=== PATIENT | male | born 1960 | race Caucasian/White ===

== ENCOUNTER → 2024-03-08 08:45 | Outpatient (BNVA) | payer OTHER, SELFPAY | PROVIDERS: PCP Family Medicine; Visit Provider Family Medicine | DX: E03.9 Hypothyroidism, unspecified (principal); Z86.39 Personal history of other endocrine, nutritional and metabolic disease; J44.9 Chronic obstructive pulmonary disease, unspecified | CPT/HCPCS: 80053; 80061; 84439; 84443; 85025; 86376 ==

== ENCOUNTER 2024-03-11 12:01 | Outpatient (CLI) | payer OTHER, SELFPAY ==
--- NOTE | 2024-03-11 12:30 | CTR_ITS ---
PROCEDURE INFORMATION: Exam: CT Chest Without Contrast; Diagnostic Exam date and time: 03/11/2024 12:49 PM Age: 63 years old Clinical indication: Other: Weight loss; Additional info: Abdominal mass on stomach. 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 Radiation optimization: All CT scans at this facility use at least one of these dose optimization techniques: automated exposure control; mA and/or kV adjustment per patient size (includes targeted exams where dose is matched to clinical indication); or iterative reconstruction. COMPARISON: No relevant prior studies available. RADIATION DOSE METRICS: Total DLP (mGy-cm): 366.14 FINDINGS: Thyroid: Partially imaged thyroid is normal in appearance. Lungs: Severe centrilobular emphysematous changes of the lungs. Masslike consolidation extending into the left infrahilar lung. Pleural spaces: No significant pleural effusion. No pneumothorax. Heart: Heart is normal in size. No pericardial effusion. Coronary arteries: Minimal coronary artery calcification. Mediastinal space: Soft tissue mass, located in the inferior posterior mediastinum, likely arising from the lower esophagus, measuring up to 7.4 cm. Lymph nodes: No distinct pathologically enlarged lymphadenopathy in the chest proper. Calcified right hilar lymph nodes. Vasculature: Moderate scattered calcific atheromatous disease of the thoracic aorta. Bones/joints: No acute osseous findings. Soft tissues: Visualized superficial soft tissues are within normal limits. Other findings: Consolidative scarring about the right hilum. PROCEDURE INFORMATION: Exam: CT Abdomen And Pelvis Without Contrast Exam date and time: 03/11/2024 12:49 PM Age: 63 years old Clinical indication: Other: Weight loss; Additional info: Abdominal mass on stomach. 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 Radiation optimization: All CT scans at this facility use at least one of these dose optimization techniques: automated exposure control; mA and/or kV adjustment per patient size (includes targeted exams where dose is matched to clinical indication); or iterative reconstruction. COMPARISON: No relevant prior studies available. RADIATION DOSE METRICS: Total DLP (mGy-cm): 366.14 FINDINGS: Liver: The liver is unremarkable. Gallbladder and biliary ducts: Multiple tiny dependent gallstones within the gallbladder. No significant gallbladder wall thickening or pericholecystic fluid. No significant biliary ductal dilation. Pancreas: The pancreas is unremarkable. Spleen: The spleen is unremarkable. Adrenal glands: The adrenal glands are unremarkable. Kidneys and ureters: 3.2 cm cyst involving the left kidney lower pole. Indeterminate exophytic lesion involving the left kidney upper pole, measuring up to 2.7 cm, with coarse internal calcifications. Right kidney is normal in appearance. No hydronephrosis or hydroureter. Stomach and bowel: Nonobstructive bowel-gas pattern. Appendix: No evidence of acute appendicitis. Intraperitoneal space: No significant free fluid in the abdomen or pelvis. Vasculature: Moderate scattered calcific atheromatous disease of the abdominal aorta and its major branches. No abdominal aortic aneurysm. Lymph nodes: Multiple prominent lymph nodes in the epigastric abdomen, measuring up to 1.3 cm on short axis. Urinary bladder: Urinary bladder is within normal limits. Reproductive: Visualized reproductive structures are within normal limits. 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 No distinct acute osseous findings. Soft tissues: Visualized superficial soft tissues are within normal limits. CT/[place] [id number] IMPRESSION: 1. Soft tissue mass, located in the inferior posterior mediastinum, measuring up to 7.4 cm. This may represent a mass arising from the lower esophagus. Alternatively, this may represent a mass arising from the stomach extending into the lower mediastinum via a [id number] hiatal hernia, with resultant mass effect upon the esophagus. Less likely, this may represent a lung primary. This mass may be amenable to endoscopic approach biopsy. PET-CT may be useful for determining extent of disease and for identifying potential biopsy locations. 2. Consolidative scarring about the right hilum. This area has the appearance of chronic radiation/post treatment changes. Overlying infectious infiltrate or metastatic disease could have a similar appearance. 3. Masslike consolidation extending into the left infrahilar lung. This may represent direct invasion of the lower esophageal mass into the lung versus local metastatic disease. 4. Severe centrilobular emphysematous changes of the lungs. IMPRESSION: 1. Multiple prominent lymph nodes in the epigastric abdomen, measuring up to 1.3 cm on short axis. This likely represents local branden metastatic disease secondary to lower mediastinal mass presumed to arise from the esophagus or stomach. 2. Indeterminate exophytic lesion involving the left kidney upper pole, measuring up to 2.7 cm, with coarse internal calcifications. Recommend further evaluation. Dedicated renal ultrasound could be used to determine vascularity of this lesion if PET-CT is not performed. 3. Cholelithiasis without CT evidence of acute cholecystitis. COMMENTS: Consistent with the [employer]'s Incidental Findings Committee white paper (J Am Laura Radiol 2018): Any incidental renal lesion less than 1 cm or classified as too small to characterize, or any incidental cystic renal lesion characterized as simple-appearing, is likely benign. No follow-up imaging is recommended for these lesions per consensus recommendations based on imaging criteria.
[2024-03-11] MEDS: iohexol 350 mg/mL 500 mL Btl (per mL) PO (12:50)
== END 2024-03-11 12:02 | disposition home or self-care (01) ==
PROVIDERS: PCP Family Medicine; Visit Provider Family Medicine
DX: R19.00 Intra-abdominal and pelvic swelling, mass and lump, unspecified site (principal); J43.2 Centrilobular emphysema; R91.8 Other nonspecific abnormal finding of lung field; R59.0 Localized enlarged lymph nodes; D30.02 Benign neoplasm of left kidney; K80.20 Calculus of gallbladder without cholecystitis without obstruction; M43.06 Spondylolysis, lumbar region; N28.1 Cyst of kidney, acquired
CPT/HCPCS: 71250; 74176

== ENCOUNTER 2024-03-15 11:40 | Outpatient (CLI) | payer OTHER, SELFPAY ==
--- NOTE | 2024-03-15 11:30 | PETR_ITS ---
PROCEDURE INFORMATION: Exam: PET/CT Skull Base to Mid-thigh Exam date and time: 03/15/2024 12:35 PM Age: 63 years old Clinical indication: Abnormal findings; Soft tissue mass, located in the inferior posterior mediastinum, measuring up to 7.4 cm. ; Additional info: Abdominal mass with CA symptom, 7.5cm LABS AND CLINICAL REPORTS: Glucose: 93 mg/dl Treatment strategy for malignancy (PET staging): Initial Staging (PI) TECHNIQUE: Imaging protocol: Following at least four-hour fasting and following the injection of radiopharmaceutical, low dose CT images were obtained. Then, PET images were obtained. Attenuation corrected images were constructed using the CT scan. Fused images of PET and CT were reviewed. The standardized uptake values (SUV) reported below are maximum values within a region of interest, expressed in gm/ml. Exam includes orbital meatal line to mid-thigh. SUV normalization method: BodyWeight Radiopharmaceutical: 10.87 mCi F-18 FDG (Fluorodeoxyglucose), IV. Time of imaging post radiopharmaceutical administration: 45 minutes Injection site: left ac COMPARISON: [place] [id number] 03/11/2024 12:49 PM FINDINGS: Brain: Visualized brain has normal physiologic uptake. Pharynx: No abnormal uptake. Larynx: No abnormal uptake. Lungs, pleura and trachea: Diffuse emphysematous change. Irregular consolidative opacity at the right lower lobe measures approximately 2.9 x 2.4 cm on axial image 225 and shows SUV max 5.6. Thickened triangular bandlike left lower lobe opacity extends along the major fissure with low-level FDG uptake showing SUV max 3.4 and more central masslike opacity measuring approximately 2.4 x 2.0 cm on axial image 204 with apparent bronchial occlusion on axial images 205-207, SUV max 6.3. Small left pleural effusion. Heart: Normal physiologic uptake. Mediastinal space: Redemonstrated large mass at the inferior aspect posterior to the heart measuring 8.4 x 8.3 cm on axial image 195 shows SUV max 8.5 with few areas of photopenia indicating necrosis. Again, there is mass effect on the esophageal lumen which is displaced to the right as well as similar dilatation of the upstream esophagus with fluid contents. Liver: No abnormal uptake. Gallbladder and biliary ducts: No abnormal uptake. Pancreas: No abnormal uptake. Spleen: No abnormal uptake. Adrenal glands: 1.3 cm left adrenal nodule shows low-level FDG uptake with SUV max 3.1. Unremarkable right adrenal gland. Kidneys and ureters: Normal physiologic uptake. Photopenic partially calcified 2.8 cm exophytic left upper renal lesion with fluid density. Photopenic fluid density simple left lower renal cyst. Stomach and bowel: Colonic diverticulosis without findings of diverticulitis. Moderate to large rectal burden. Vasculature: No abnormal uptake. Moderate systemic atherosclerotic calcification without aortic aneurysm. Lymph nodes: Mediastinal and bilateral hilar lymphadenopathy with index precarinal node measuring 1.2 cm in the short axis showing SUV max 5.2, nonenlarged subcarinal node showing SUV max 4.6, right hilar node measuring approximately 1.3 cm showing SUV max 5.7 on axial image 211, and node posterior to the left main bronchus measuring 1 cm in the short axis on axial image 223 showing SUV max 3.5. Just anterior to the distal mediastinal mass is a node measuring 1.1 cm in the short axis on axial image 185 showing SUV max 5.4. Enlarged perigastric lymph node measures 1.4 cm in the short axis on axial image 178 and shows SUV max 6.6. Mildly prominent bilateral axillary lymph nodes with preserved reniform morphology and FDG uptake measuring 6 mm in the short axis on the right on axial image 251 with SUV max 4.7 and 7 mm in the short axis on the left on axial image 246 with SUV max 4.0. Focal FDG uptake at posterior right submandibular region with underlying soft tissue density shows SUV max 4.4 on axial image 291. Skeleton: No abnormal uptake in the visualized axial and appendicular skeleton. Soft tissues: FDG uptake at bilateral neck, upper chest and costovertebral regions with underlying fat density in keeping with brown fat. Linear FDG uptake along right teres minor muscle without underlying CT abnormality is benign activation or inflammatory/strain. Focal low-level FDG uptake just posterior to left humeral head is likely tendinopathy. Photopenic thick rimmed centrally hypodense 3.0 x 1.0 cm structure at the subcutaneous anterior right thigh on axial image 35. METRICS: Mediastinal blood pool: SUV mean 2.0 Liver uptake: SUV mean 2.3 PET/PET skull to thigh INIT [id number] IMPRESSION: 1. Large partially necrotic mediastinal mass may represent malignant lymphadenopathy or possibly esophageal mass. Resultant partially obstructive mass effect on esophageal lumen. 2. Mediastinal, bilateral hilar, and perigastric lymphadenopathy suspicious for malignancy. 3. Lower level FDG uptake at mildly prominent bilateral axillary lymph nodes is nonspecific, possibly reactive given preserved reniform morphology. 4. Focal FDG uptake at posterior right submandibular region could represent abnormal lymph node but is uncertain and warrants further evaluation with contrast-enhanced neck CT. 5. Irregular FDG avid right lower lobe consolidative opacity could be infectious or malignant. 6. Mildly FDG avid left lower lobe opacity may represent postobstructive atelectasis or pneumonia with apparent obstructing lesion centrally measuring approximately 2.4 cm. 7. Indeterminate 1.3 cm left adrenal nodule. Recommend nonemergent adrenal CT or MRI. 8. Indeterminate partially calcified photopenic 2.8 cm exophytic left upper renal mass. Recommend nonemergent renal MRI or CT without and with contrast. 9. Small left pleural effusion. 10. Nonspecific photopenic 3 x 1 cm structure at the subcutaneous anterior right thigh may be benign posttraumatic or postprocedural. Correlate with clinical findings.
== END 2024-03-15 11:41 | disposition home or self-care (01) ==
PROVIDERS: PCP Family Medicine; Visit Provider Family Medicine
DX: R19.00 Intra-abdominal and pelvic swelling, mass and lump, unspecified site (principal); J43.9 Emphysema, unspecified; R91.8 Other nonspecific abnormal finding of lung field; D35.02 Benign neoplasm of left adrenal gland; I70.0 Atherosclerosis of aorta; R59.0 Localized enlarged lymph nodes; J90 Pleural effusion, not elsewhere classified
CPT/HCPCS: 78815; A9552

== ENCOUNTER 2024-03-18 22:05 | Emergency (ER) | payer MEDICARE, MEDICAID, SELFPAY ==
[2024-03-18] VITALS (13 sets, daily range): BP systolic 85–116; BP diastolic 47–74; PULSE 122–139; RESP 18–27; TEMP 36.7; O2SAT 92–98; BMI 15.0
--- NOTE | 2024-03-18 22:08 | XRR_ITS ---
PROCEDURE INFORMATION: Exam: XR Chest Exam date and time: 03/18/2024 10:40 PM Age: 63 years old Clinical indication: Shortness of breath; Additional info: Post code TECHNIQUE: Imaging protocol: Radiologic exam of the chest. Views: 1 view. COMPARISON: [place] [id number] 03/11/2024 12:49 PM FINDINGS: Tubes, catheters and devices: There is an endotracheal tube with the tip 5.3 cm above the shawn. There is an enteric tube with the tip just below the GE junction with the proximal port in the lower esophagus. External defibrillator patches overlie the chest. Lungs: Interval development of patchy left lower lobe atelectasis versus pneumonia, possibly aspiration pneumonia. Stable moderate hyperinflation of the lungs. Pleural spaces: No pleural effusion. No pneumothorax. Heart/Mediastinum: The cardiac silhouette and mediastinal contours are unremarkable. Stable retrocardiac density, this corresponds to the large mediastinal mass noted on the prior CT scan. Vasculature: Stable vascular calcifications in the aorta. Bones/joints: Unremarkable for age. Gastrointestinal tract: Mild distension of the visualized stomach. XR/XR chest 1V portable [id number] IMPRESSION: 1. Interval development of patchy left lower lobe atelectasis versus pneumonia, possibly aspiration pneumonia. Recommend followup chest imaging to insure resolution of these findings. 2. Mild distension of the visualized stomach. 3. Stable retrocardiac density, this corresponds to the large mediastinal mass noted on the prior CT scan. 4. There is an enteric tube with the tip just below the GE junction with the proximal port in the lower esophagus. Recommend advancing the tube 6-7 cm. 5. There is an endotracheal tube with the tip 5.3 cm above the shawn. 6. Incidental/nonacute findings are listed in the report. COMMENTS: Urgent results were discussed with HRENANDEZ Christina on 03/18/2024 at 11:30 PM [employer].
--- NOTE | 2024-03-18 22:13 | PC.NURSE ---
pt is sedated at this time and not able to answer the SI questions
--- NOTE | 2024-03-18 22:17 | ECG_ITS ---
[employer] Test Date: 2024-03-18 Pat Name: Wes Carrion Department: Room: Gender: Male T[employer] Bl[employer]: : [id number] Requested By: Emily Giron Order Number: [id number] Rosa MD: Traci Leary M.D. Measurements Intervals [place] Rate: 126 P: 74 IL: 149 QRS: 71 QRSD: 93 T: 124 QT: 387 QTc: 562 Interpretive Statements SINUS TACHYCARDIA INDETERMINATE AXIS LOW QRS VOLTAGE IN EXTREMITY LEADS [QRS DEFLECTION < 0.5 mV IN LIMB LEADS] INCOMPLETE RIGHT BUNDLE BRANCH BLOCK [90+ ms QRS DURATION, TERMINAL R IN V1/V2, 40+ ms S IN I/aVL/V4/V5/V6] POSSIBLE INFERIOR MYOCARDIAL INFARCTION , OF INDETERMINATE AGE [30 ms Q WAVE IN II/aVF] No previous ECG available for comparison Electronically Signed On 03-20-2024 19:15:19 [employer]PRENTICE by Traci Leary M.D. [email or web address]
[2024-03-18] MEDS: midazolam hcl 100 MG/100 ML BAG IV (22:27)
[2024-03-18] MEDS: fentaNYL 50 mcg/mL INJ 2mL IVP (22:35)
[2024-03-18 22:44] LABS: Basophils # 0.1 10^3/uL (0.0-0.1); Basophils % 0.4 %; Eosinophils # 0.1 10^3/uL (0.0-0.8); Eosinophils % 0.7 %; Hematocrit 27.4 % (37-53); Lymphocytes # 1.2 10^3/uL (0.8-4.8); Lymphocytes % 8.2 %; Mean Corpuscular Hemoglobin 27.7 pg (27-33); Mean Corpuscular Volume 89.3 fl (82-101); Mean Platelet Volume 10.1 fL (7.4-10.4); Monocytes # 0.6 10^3/uL (0.2-0.9); Monocytes % 3.9 %; Neutrophils # 12.31 10^3/uL (1.8-7.7); Neutrophils % 82.4 %; Nucleated Red Blood Cells % 0 %; Platelet Count 549 10^3/cmm (157-399); Red Blood Count 3.07 10^6/uL (3.85-5.65); Red Cell Distribution Width 14.5 % (12.1-15.1); White Blood Count 14.95 10^3/uL (3.29-11.43)
--- NOTE | 2024-03-18 22:45 | PC.NURSE ---
IO placed in the right femur just above the knee by [facility] ems. Removed at this time
[2024-03-18 22:46] LABS: Bilirubin Urine Negative (Negative); Blood Urine Negative (Negative); Glucose Urine UA Negative (Normal); Ketones Urine Negative (Negative); Leukocyte Esterase Urine Negative (Negative); Nitrate Urine Negative (Negative); Protein Urine 2+ (Negative); Specific Gravity, Urine 1.017 (1.005-1.030); Urine Appearance Clear (CLEAR); Urine Color Yellow (Yellow); pH Urine 5.5 (5-7)
[2024-03-18 22:46] LABS: Troponin(5th) Baseline 66 ng/L (0-15)
[2024-03-18 22:47] LABS: Lactic Sepsis W/Reflex 5.5 mmol/L (0.5-2.2)
--- NOTE | 2024-03-18 22:47 | W.ED.CPR ---
HPI - CPR General: Chief Complaint: Cardiac Arrest/CPR Stated Complaint: CARDIAC ARREST Time Seen by Provider: 03/18/24 22:07 History of Present Illness: 63-year-old man with history of COPD and report of stomach cancer who presents the emergency room after cardiac arrest at home and CPR. says she was in bed with him as they usually are and when she looked over after about 15 or 20 minutes she noticed his eyes were open but he was breathing agonal he. She says her son did CPR for a few minutes before first responders arrived. EMS reports that when they arrived he initially had a very thready pulse which they lost and was breathing agonal he. CPR was resumed. He was intubated. He was given 1 round of epi and they regained a pulse. On arrival here he is intubated, but is awake and alert and will blink his eyes in response to questions. says that Related Data Home Medications Medication Instructions Recorded Confirmed atorvastatin 20 mg tablet 20 mg PO DAILY 03/08/24 03/08/24 multivitamin 1 tab PO DAILY 03/08/24 03/08/24 Previous Rx's Medication Instructions Recorded albuterol sulfate 90 mcg/actuation 1 inh inhalation QID PRN shortness 03/08/24 aerosol inhaler of breath or wheezing #8.5 grams fluticasone fur. 200 mcg-umeclid 1 inh inhalation DAILY #60 ea 03/08/24 62.5 mcg-vilant 25 mcg inhalat.powder (Trelegy Ellipta) guaifenesin 1,200 mg tablet, 1,200 mg PO BID #14 tabs 03/08/24 extended release 12 hr (Mucinex) pantoprazole 40 mg tablet,delayed 40 mg PO DAILY #60 tabs 03/08/24 release (Protonix) levothyroxine 25 mcg capsule 25 mcg PO DAILY #60 caps 03/11/24 Allergies Allergy/AdvReac Type Severity Reaction Status Date / Time Penicillins Allergy Mild rash Verified 03/18/24 22:12 Review of Systems General: Reports: ROS unobtainable due to endotracheal tube [facility] ED PFSH: Medical History (Updated 03/19/24 @ 01:24 by Emily Bass MD) Hiatal hernia Pulmonary fibrosis Tobacco use disorder Low body mass index (BMI) COPD (chronic obstructive pulmonary disease) Hypothyroidism Mass in the abdomen Surgical History (Updated 03/08/24 @ 08:15 by Kahlil Watson MD) History of melanoma excision Family History Father Cancer Mother Brain cancer Diabetes Hypothyroidism Social History (Updated 03/08/24 @ 08:47 by Kahlil aWtson MD) Smoking and tobacco/nicotine status: current every day tobacco/nicotine user cigarettes [ Other cigarette details: 1/2 PPD, >100PY] Alcohol intake: former Former alcohol use details: beer Substance/Drug Use: never Physical Exam Narrative: EXAM NARRATIVE: General: Patient is actually awake and responds to questions by blinking, intubated. Patient is quite cachectic Skin: Warm, dry Head: Normocephalic, atraumatic. Neck: Supple, trachea midline. Eye: Pupils equal and reactive. Extraocular movements are intact Ears, nose, mouth and throat: ETT in place. Cardiovascular: Regular rate and rhythm, Normal peripheral perfusion. Respiratory: coarse, mechanically ventilated, breath sounds are equal, Symmetrical chest wall expansion. Gastrointestinal: Soft, Non distended, Normal bowel sounds. Musculoskeletal: no deformity. Neurological: Patient moves all extremities. He responds to questions appropriately with pointing. We are increasing sedation Psychiatric: unable to assess Course Vital Signs: Vital signs: Vital Signs Temperature 98.1 F 03/18/24 22:08 Pulse Rate 104 H 03/19/24 01:04 Respiratory Rate 20 H 03/19/24 01:10 Blood Pressure 66/44 03/19/24 01:04 Pulse Oximetry 100 03/19/24 01:04 Oxygen Delivery Me thod Mechanical Ventil ation 03/19/24 01:04 Fraction of Inspir ed Oxygen 100 03/19/24 01:10 MDM - Cardiac Arrest/CPR Medical Decision Making Medical decision making: Differential diagnosis including but not limited to and based on the above HPI, review of systems and physical exam: In this patient with cardiac arrest have concern for acute coronary syndrome, pulmonary embolism, sepsis and septic shock, intracranial hemorrhage, pneumonia, urinary tract infection Orders placed to evaluate differential diagnosis based on the above differential, HPI and physical exam EKG: Time 2217. Rate 126. Sinus tachycardia, nonspecific ST-T changes, no ectopy, normal SC & QRS intervals, This was reviewed and interpreted by myself the ER physician at 2220. No overt ischemic changes, however there is quite a bit of interference AB.2 on 100% FiO2. Profound metabolic acidosis likely secondary to lactic acidosis. Lab Review: Laboratory results were reviewed and interpreted by myself the emergency room physician. Significant leukocytosis with a white count of 15,000. Lactate initially is 5.7 is down to 2.4 after fluids. Anemia with a hemoglobin of 8.5. Have no comparison. Hyponatremia with a sodium of 129. Some renal insufficiency with a BUN/creatinine of 27 and 1.1. Again I do not know his baseline. Glucose is elevated at 243. Initial troponin is 66. Repeat is 161 with a delta of 95. Potassium is a little elevated at 5.7. proBNP is elevated at 3702. I do not see any evidence of fluid overload and I think he actually looks dry. Urinalysis is negative for infection. Chest x-ray: Entered and level development of right lower lobe infiltrate. This is likely a pneumonia. ET tube is in place. NG tube needs advanced. This was reviewed and interpreted by myself the emergency room physician. I also reviewed the radiology report. CT of the chest abdomen pelvis: PE protocol on the chest. ET tube is in place. NGT is in the stomach. Bulky 9 x 9 mass which appears to be effacing the heart and displacing it anteriorly. Severe left lower lobe pneumonia with mild right lower lobe and left upper lobe pneumonia. I reviewed the patient's medical record. PET scan performed on 1121: 1. Large partially necrotic mediastinal mass may represent malignant lymphadenopathy or possibly esophageal mass. Resultant partially obstructive mass effect on esophageal lumen. 2. Mediastinal, bilateral hilar, and perigastric lymphadenopathy suspicious for malignancy. 3. Lower level FDG uptake at mildly prominent bilateral axillary lymph nodes is nonspecific, possibly reactive given preserved reniform morphology. 4. Focal FDG uptake at posterior right submandibular region could represent abnormal lymph node but is uncertain and warrants further evaluation with contrast-enhanced neck CT. 5. Irregular FDG avid right lower lobe consolidative opacity could be infectious or malignant. 6. Mildly FDG avid left lower lobe opacity may represent postobstructive atelectasis or pneumonia with apparent obstructing lesion centrally measuring approximately 2.4 cm. 7. Indeterminate 1.3 cm left adrenal nodule. Recommend nonemergent adrenal CT or MRI. 8. Indeterminate partially calcified photopenic 2.8 cm exophytic left upper renal mass. Recommend nonemergent renal MRI or CT without and with contrast. 9. Small left pleural effusion. 10. Nonspecific photopenic 3 x 1 cm structure at the subcutaneous anterior right thigh may be benign posttraumatic or postprocedural. Correlate with clinical findings. Reexamination: Patient continues to have a large oxygen requirement. Tachycardia has improved some, however hypotension has continued to be an issue. He is a bouncing between 90s and 60s systolic. MAP has remained between upper 50s and lower 60s. Initiating Levophed. Have now achieve better sedation. He is resting comfortably on the vent. Consultation: I spoke with the Dr. Perez hospitalist on-call. She recommends CT scan to reevaluate. Consultation: I spoke with Dr. Leary who is on-call for the spa manager/esthetician service. He recommends transfer as this patient likely needs an sales activity manager and also likely a CT surgeon given that there seems to be effacement of the heart secondary to this mass. Consultation: I spoke with Dr. Coelho, sales activity manager at [facility] in [place]. He accepts the patient in transfer to the ICU as a direct admission. Assessment and plan: Cardiac arrest Septic shock Pneumonia Hypoxemic respiratory failure Retrocardiac mass Hyponatremia Hyperkalemia Lactic acidosis Non-ST elevation myocardial infarction Cardiac arrest: ? I believe this was secondary to septic shock. - He responded to epi and has no neurologic deficits. Was awake on arrival ? He is requiring some Levophed. He responded initially to fluids. CODE STATUS: Patient is intubated and on a ventilator. has stated she would like to have him be DNR. If his heart stops again she does not want CPR performed. He is okay to continue pressors and ventilator at this time. Septic shock/pneumonia/lactic acidosis -Elevated lactate, elevated white count, source is multifocal pneumonia, blood pressure initially responded to fluids but now is requiring Levophed. -2 L normal saline bolus. Fluid volumes based on ideal body weight. ?Initiating Levophed. -Broad-spectrum antibiotics were administered. Zyvox and meropenem -Sepsis quality measures. -Lactic acid with a reflex was ordered. -Blood cultures were ordered. Hypoxemic respiratory failure ?Intubated in the field - Patient is having considerable oxygen requirement on the vent. Repeating a blood gas. - This seems to be secondary to pneumonia. - No evidence of pulmonary embolism but he does have some invasion into the pulmonary veins. ?Repeat ABG 7.1 on 100% FiO2. Increasing tidal volume. Patient is breathing on his own at about 24 times a minute. Retrocardiac mass: ?Concern for effacement of the heart and anterior displacement of the heart. Unknown diagnosis. [place] to either be from the stomach or the esophagus. Given that he has a elevated proBNP at 3700 with all other signs pointing to dehydration I would have concern that this is causing some heart failure and strain on the heart. Non-ST elevation myocardial infarction: ?I think this is secondary to septic shock and hypotension resulting in a code. I am withholding giving any kind of anticoagulation at this time. Hyperkalemia and hyponatremia: ? These should likely improve with fluids. No other acute intervention at this time - Discussed findings and plan with . Answered any questions. - All laboratory values were reviewed and interpreted personally by myself, the ER physician - All imaging was reviewed and interpreted personally by myself, the ER physician. - Evaluation and treatment of this problem were appropriate in the emergency setting Critical care -I spent a total of >65 minutes of critical care time managing the patient, independent of any other practitioner. -The time involved in the performance of separately reportable procedures was not counted towards critical care time. Lab Data 03/18/24 22:39 03/18/24 22:13 Radiology Impressions Chest X-Ray 03/18/24 22:08 IMPRESSION: 1. Interval development of patchy left lower lobe atelectasis versus pneumonia, possibly aspiration pneumonia. Recommend followup chest imaging to insure resolution of these findings. 2. Mild distension of the visualized stomach. 3. Stable retrocardiac density, this corresponds to the large mediastinal mass noted on the prior CT scan. 4. There is an enteric tube with the tip just below the GE junction with the proximal port in the lower esophagus. Recommend advancing the tube 6-7 cm. 5. There is an endotracheal tube with the tip 5.3 cm above the shawn. 6. Incidental/nonacute findings are listed in the report. COMMENTS: Urgent results were discussed with EMILY Christina on 03/18/2024 at 11:30 PM OPHTHALMIC MEDICAL TECHNICIAN. Chest/Abdomen/Pelvis CT 03/19/24 00:01 IMPRESSION: 1. Endotracheal tube in place. 2. Enteric tube tip is over the body of the stomach (mid stomach). 3. 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 4. Anterior displacement and effacement of the heart secondary to bulky retrocardiac mass. 5. Occlusion of the left inferior pulmonary veins which are probably surrounded by tumor from direct invasion. 6. Severe left lower lobe pneumonia with mild right lower lobe and left upper lobe pneumonia. 7. No pulmonary embolus. 8. Small left pleural fluid collection and or peripheral atelectasis in the dependent portion of the left lung. IMPRESSION: 1. 2.6 cm partially calcified exophytic lesion upper pole left kidney most consistent with complex cyst versus treated renal lesion. 2. Gutiérrez balloon catheter in the urinary bladder. COMMENTS: Consistent with the [employer]'s Incidental Findings Committee white paper (J Am Laura Radiol 2018): Any incidental renal lesion less than 1 cm or classified as too small to characterize, or any incidental cystic renal lesion characterized as simple-appearing, is likely benign. No follow-up imaging is recommended for these lesions per consensus recommendations based on imaging criteria. Head CT 03/19/24 00:01 IMPRESSION: 1. No acute intracranial findings. 2. Paranasal sinus effusion. Correlate for sinusitis. Laboratory Results WBC 14.95 10^3/uL (3.29-11.43) H 03/18/24 22:39 Corrected WBC Cancelled 03/18/24 22:13 RBC 3.07 10^6/uL (3.85-5.65) L 03/18/24 22:39 Hgb 8.50 g/dL (11.27-16.99) L 03/18/24 22:39 Hct 27.4 % (37-53) L 03/18/24 22:39 MCV 89.3 fl (82-101) 03/18/24 22:39 MCH 27.7 pg (27-33) 03/18/24 22:39 MCHC 31.0 g/dL (30-55) 03/18/24 22:39 RDW 14.5 % (12.1-15.1) 03/18/24 22:39 Plt Count 549 10^3/cmm (157-399) H 03/18/24 22:39 MPV 10.1 fL (7.4-10.4) 03/18/24 22:39 Gran % Cancelled 03/18/24 22:13 Neut % (Auto) 82.4 % 03/18/24 22:39 Lymph % (Auto) 8.2 % 03/18/24 22:39 [place] % (Auto) 3.9 % 03/18/24 22:39 Eos % (Auto) 0.7 % 03/18/24 22:39 Baso % (Auto) 0.4 % 03/18/24 22:39 Neut # (Auto) 12.31 10^3/uL (1.8-7.7) H 03/18/24 22:39 Lymph # (Auto) 1.2 10^3/uL (0.8-4.8) 03/18/24 22:39 [place] # (Auto) 0.6 10^3/uL (0.2-0.9) 03/18/24 22:39 Eos # (Auto) 0.1 10^3/uL (0.0-0.8) 03/18/24 22:39 Baso # (Auto) 0.1 10^3/uL (0.0-0.1) 03/18/24 22:39 Absolute Gran (auto) Cancelled 03/18/24 22:13 Nucleated RBC % (auto) 0 % 03/18/24 22:39 Nucleated RBCs # 0.0 /100WBC 03/18/24 22:39 Specimen Type Arterial 03/19/24 01:45 Sample Site Radial, right 03/19/24 01:45 ABG pH 7.18 (7.35-7.45) L* 03/19/24 01:45 ABG pCO2 55.9 mmHg (35-45) H 03/19/24 01:45 ABG pO2 113.0 mmHg (80.0-100.0) H 03/19/24 01:45 ABG PO2/FiO2 Ratio 113 03/19/24 01:45 ABG HCO3 21.0 mmol/L (22-26) L 03/19/24 01:45 ABG O2 Saturation 97.7 03/19/24 01:45 ABG Base Excess -7.2 mmol/L (-2.0-2.0) L 03/19/24 01:45 Quoc Test Pos 03/19/24 01:45 A-a O2 Gradient 70.0 mmHg (5-10) H 03/19/24 01:45 Hematocrit 28.5 % (42-52) L 03/19/24 01:45 Hgb O2 Saturation 95.9 % (95-100) 03/19/24 01:45 Carboxyhemoglobin 1.7 %THgb (0.4-20.1) 03/19/24 01:45 Methemoglobin 0.0 % (0.4-1.5) L 03/19/24 01:45 Total Hemoglobin 9.3 g/dL (14-18) L 03/19/24 01:45 Sodium 132.0 mmol/L (131-143) 03/19/24 01:45 Potassium 4.7 mmol/L (3.5-5.0) 03/19/24 01:45 Glucose 183.0 mg/dL (70-115) H 03/19/24 01:45 Ionized Calcium 1.2 mmol/L (1.1-1.4) 03/19/24 01:45 O2 Delivery Device Vent 03/19/24 01:45 FiO2 100.0 % 03/19/24 01:45 Tidal Volume 0.45 03/19/24 01:45 PEEP 5.0 cmH20 03/19/24 01:45 Flame Cutter ID Larry 03/19/24 01:45 Sodium 129 mmol/L (136-145) L 03/18/24 22:13 Potassium 5.7 mmol/L (3.5-5.1) H 03/18/24 22:13 Chloride 95 mmol/L (98-107) L 03/18/24 22:13 Carbon Dioxide 20 mmol/L (22-29) L 03/18/24 22:13 Anion Gap 19.7 (5-19) H 03/18/24 22:13 BUN 27 mg/dL (8-23) H 03/18/24 22:13 Creatinine 1.1 mg/dL (0.7-1.2) 03/18/24 22:13 GFR Calculation 67.2 mL/min (90-130) L 03/18/24 22:13 Glucose 243 mg/dL (65-115) H 03/18/24 22:13 Calculated Osmolality 281 mOsm/kg (285-295) L 03/18/24 22:13 Lactic Acid 2.4 mmol/L (0.5-2.2) H 03/19/24 00:26 Calcium 9.0 mg/dL (8.5-10.5) 03/18/24 22:13 Total Bilirubin 0.2 mg/dL (0.15-1.2) 03/18/24 22:13 AST 77 U/L (0-40) H 03/18/24 22:13 ALT 60 U/L (0-41) H 03/18/24 22:13 Alkaline Phosphatase 257 U/L (40-130) H 03/18/24 22:13 Troponin T Baseline 66 ng/L (0-15) H 03/18/24 22:13 Troponin T 120 Minute 161.1 ng/L (0-15) H 03/19/24 00:26 Delta Troponin T 95.1 ABS# (0-10) H* 03/19/24 00:26 NT-Pro-B Natriuret Pep 3702 pg/mL (0-125) H 03/18/24 22:13 Total Protein 7.7 g/dL (6.6-8.7) 03/18/24 22:13 Albumin 3.1 g/dL (3.5-5.2) L 03/18/24 22:13 Globulin 4.6 g/dL (1.3-4.6) 03/18/24 22:13 Urine Color Yellow (Yellow) 03/18/24 22:36 Urine Appearance Clear (CLEAR) 03/18/24 22:36 Urine pH 5.5 (5-7) 03/18/24 22:36 Ur Specific [place] 1.017 (1.005-1.030) 03/18/24 22:36 Urine Protein 2+ (Negative) A 03/18/24 22:36 Urine Glucose (UA) Negative (Normal) 03/18/24 22:36 Urine Ketones Negative (Negative) 03/18/24 22:36 Urine Blood Negative (Negative) 03/18/24 22:36 Urine Nitrate Negative (Negative) 03/18/24 22:36 Urine Bilirubin Negative (Negative) 03/18/24 22:36 Urine Urobilinogen 1.0 mg/dL (Negative) 11/25/24 22:36 Ur Leukocyte Esterase Negative (Negative) 03/18/24 22:36 Urine RBC 0-2 /hpf (0-2) 03/18/24 22:36 Urine WBC 0-5 /hpf (0-5) 03/18/24 22:36 Ur Squamous Epith Cells 0-5 /hpf (0-5) 03/18/24 22:36 Amorphous Sediment Not Reportable 03/18/24 22:36 Urine Bacteria None seen /hpf (NONE) 03/18/24 22:36 Hyaline Casts 40.13 /lpf 03/18/24 22:36 Fine Granular Casts 0-4 /lpf H 03/18/24 22:36 Urine Sperm 1+ /hpf 03/18/24 22:36 Urine Opiates Screen Negative ng/mL (Negative) 03/18/24 22:36 Ur Barbiturates Screen Negative ng/mL (Negative) 03/18/24 22:36 Ur Phencyclidine Scrn Negative ng/mL (Negative) 03/18/24 22:36 Ur Amphetamines Screen Negative ng/mL (Negative) 03/18/24 22:36 U Benzodiazepines Scrn Negative ng/mL (Negative) 03/18/24 22:36 Urine Cocaine Screen Negative ng/mL (Negative) 03/18/24 22:36 U Marijuana (THC) Screen Negative ng/mL (Negative) 03/18/24 22:36 Coronavirus (PCR) Negative (Negative) 03/18/24 22:35 Influenza A (PCR) Negative (Negative) 03/18/24 22:35 Influenza Type B (PCR) Negative (Negative) 03/18/24 22:35 RSV (PCR) Negative (Negative) 03/18/24 22:35 All radiology interpretation(s) finalized by discharge Discharge Plan Discharge Patient Disposition: Xfer Short-Term Hosp Clinical Impression: Cardiac arrest, Sepsis, Pneumonia, Mass in the abdomen, COPD (chronic obstructive pulmonary disease), Non-ST elevation (NSTEMI) myocardial infarction, Tobacco use disorder, Pulmonary fibrosis, Leukocytosis, Lactic acidosis, Acute hypoxemic respiratory failure Condition: Stable Referrals: Kahlil Watson MD [Primary Care Provider] - Coding Level of Care Code ED Dressmaking Teacher for Jesús Gibson
[2024-03-18 22:49] LABS: Bacteria Urine None Seen /hpf; Hyaline Casts Urine 40.13 /lpf; RBC Urine 0-2 /hpf (0-2); Squamous Epithelial Cell Urine 0-5 /hpf (0-5); WBC Urine 0-5 /hpf (0-5)
[2024-03-18 22:53] LABS: Amphetamines Screen Urine Negative (Negative); Barbiturates Screen Urine Negative (Negative); Benzodiazepines Screen Urine Negative (Negative); Cocaine Screen Urine Negative (Negative); Opiate Screen Urine Negative (Negative); PCP Screen Urine Negative (Negative); THC Screen Urine Negative (Negative)
[2024-03-18 22:57] LABS: Alanine Aminotransferase 60 U/L (0-41); Albumin Level 3.1 g/dL (3.5-5.2); Alkaline Phosphatase 257 U/L (40-130); Aspartate Amino Transferase 77 U/L (0-40); Blood Urea Nitrogen 27 mg/dL (8-23); Carbon Dioxide 20 mmol/L (22-29); Chloride 95 mmol/L (98-107); Creatinine Clr Calc Pharmacy 43.8125; Globulin 4.6 g/dL (1.3-4.6); Glomerular Filtration Rate 67.2 mL/min (90-130); Glucose 243 mg/dL (65-115); NT Pro B Type Natriuretic Pept 3702 pg/mL (0-125); Osmolality Calculated 281 mOsm/kg (285-295); Sodium 129 mmol/L (136-145); Total Bilirubin 0.2 mg/dL (0.15-1.2); Total Protein 7.7 g/dL (6.6-8.7)
[2024-03-18 22:59] LABS: Anion Gap 19.7 (5-19); Potassium 5.7 mmol/L (3.5-5.1)
[2024-03-18 23:03] LABS: Add Urine Culture? No; Fine Granular Casts Urine 0-4 /lpf; Sperm Urine 1+ /hpf
[2024-03-18 23:03] LABS: ABG PCO2 51.7 mmHg (35-45); ABG PH Result 7.23 (7.35-7.45); Alveolar-Arterial Oxygen Gradi 76.5 mmHg (5-10); Arterial Blood Gas Hematocrit 35.2 % (42-52); Base Excess ABG -6.1 mmol/L (-2.0-2.0); Blood Gas Allen Test Pos; Blood Gas Operator Identificat SAM; Blood Gas Sample Site Radial, right; Blood Gas Sample Type Arterial; Blood Gas Tidal Volume 0.45; Carboxyhemoglobin 3.7 %THgb (0.4-20.1); HCO3 ABG 21.6 mmol/L (22-26); Ionized Calcium Level - ABG 1.3 mmol/L (1.1-1.4); Oxygen Device VENT; Oxygen Saturation ABG 90.3; PO2 ABG 68.8 mmHg (80.0-100.0); PO2 FiO2 Ratio Arterial Blood 68; Potassium Level - ABG 4.7 mmol/L (3.5-5.0); Total Hemoglobin 11.5 g/dL (14-18)
[2024-03-18] MEDS: sodium chloride 0.9% 1,000 ML 999 ML IV (23:13)
[2024-03-18 23:22] LABS: Covid PCR NEGATIVE (Negative); Influenza A NEGATIVE (Negative); Influenza B NEGATIVE (Negative); Respiratory Syncytial Virus Ce NEGATIVE (Negative)
[2024-03-18] MEDS: meropenem 1,000 mg SDV 1000 MG IVP (23:22)
[2024-03-18] MEDS: methylPREDNISolone sod succ 125 mg/2 mL INJ IVP (23:22)
[2024-03-18] MEDS: linezolid premix 600 MG/300 ML PREMIX 300 MG IV (23:22)
[2024-03-19] VITALS (18 sets, daily range): BP systolic 60–102; BP diastolic 42–66; PULSE 104–125; RESP 15–21; O2SAT 99–100
--- NOTE | 2024-03-19 00:01 | CTR_ITS ---
PROCEDURE INFORMATION: Exam: CT Head Without Contrast Exam date and time: 03/18/2024 11:43 PM Age: 63 years old Clinical indication: Alteration of consciousness and altered mental status/memory loss; Syncope and collapse; Other: Known stomach cancer; Additional info: Post cpr TECHNIQUE: Imaging protocol: Computed tomography of the head without contrast. Radiation optimization: All CT scans at this facility use at least one of these dose optimization techniques: automated exposure control; mA and/or kV adjustment per patient size (includes targeted exams where dose is matched to clinical indication); or iterative reconstruction. COMPARISON: PT PET skull to thigh INIT [id number] 03/15/2024 12:35 PM RADIATION DOSE METRICS: Total DLP (mGy-cm): 1103.34 FINDINGS: Brain: No acute intracranial hemorrhage, mass effect or midline shift. White matter hypodensities most likely from chronic microangiopathy. Right temporal lobe encephalomalacia. Cerebral ventricles: Ex vacuo expansion of the ventricles due to volume loss. Paranasal sinuses: Effusion within the right maxillary and bilateral sphenoid sinuses. Mastoid air cells: Visualized mastoid air cells are well aerated. Bones: No acute bony findings. Soft tissues: Unremarkable. CT/CT head wo con* [id number] IMPRESSION: 1. No acute intracranial findings. 2. Paranasal sinus effusion. Correlate for sinusitis.
--- NOTE | 2024-03-19 00:01 | CTR_ITS ---
PROCEDURE INFORMATION: Exam: CTA Chest With Contrast Exam date and time: 03/18/2024 11:48 PM Age: 63 years old Clinical indication: Cancer; Stomach; Cardiovascular condition or disease and ng tube and lung condition and disease; Cardiac arrest; Copd; Complications not specified; Additional info: Hypoxemia, tachycardia, post cpr, intubated TECHNIQUE: Imaging protocol: Computed tomographic angiography of the chest with contrast. Exam focused on the arteries. 3D rendering (Not supervised by radiologist): MIP and/or 3D reconstructed images were created by the technologist. Radiation optimization: All CT scans at this facility use at least one of these dose optimization techniques: automated exposure control; mA and/or kV adjustment per patient size (includes targeted exams where dose is matched to clinical indication); or iterative reconstruction. Contrast material: OMNI 350; Contrast volume: 100 ml; Contrast route: INTRAVENOUS (IV); COMPARISON: PT PET skull to thigh INIT [id number] 03/15/2024 12:35 PM RADIATION DOSE METRICS: Total DLP (mGy-cm): 180.2 FINDINGS: Tubes, catheters and devices: Endotracheal tube in place. Enteric tube tip is over the body of the stomach (mid stomach). Pulmonary arteries: No pulmonary embolus. Aorta: Calcification of the thoracic aorta and/or great vessels consistent with atherosclerotic vessel disease. Veins: Occlusion of the left inferior pulmonary veins which are probably surrounded by tumor from direct invasion. Lungs: Severe left lower lobe pneumonia with mild right lower lobe and left upper lobe pneumonia. Pleural spaces: Small left pleural fluid collection and or peripheral atelectasis in the dependent portion of the left lung. Heart: See Bones/joints finding. 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 Lymph nodes: Unremarkable. No enlarged lymph nodes. Bones/joints: Anterior displacement and effacement of the heart secondary to bulky retrocardiac mass. Soft tissues: Unremarkable. PROCEDURE INFORMATION: Exam: CT Abdomen And Pelvis With Contrast Exam date and time: 03/18/2024 11:48 PM Age: 63 years old Clinical indication: Cancer; Stomach; Cardiovascular condition or disease and ng tube and lung condition and disease; Cardiac arrest; Copd; Complications not specified; Additional info: Hypoxemia, tachycardia, post cpr, intubated TECHNIQUE: Imaging protocol: Computed tomography of the abdomen and pelvis with contrast. Radiation optimization: All CT scans at this facility use at least one of these dose optimization techniques: automated exposure control; mA and/or kV adjustment per patient size (includes targeted exams where dose is matched to clinical indication); or iterative reconstruction. Contrast material: OMNI 350; Contrast volume: 100 ml; Contrast route: INTRAVENOUS (IV); COMPARISON: PT PET skull to thigh INIT [id number] 03/15/2024 12:35 PM RADIATION DOSE METRICS: Total DLP (mGy-cm): 320.8 FINDINGS: Liver: Low attenuation focus in the liver measuring < 5mm which is too small to characterize. Gallbladder and biliary ducts: Normal. No calcified stones. No ductal dilation. Pancreas: Normal. No ductal dilation. Spleen: Normal. No splenomegaly. Adrenal glands: Normal. No mass. Kidneys and ureters: Left renal simple cyst measuring >1.0 cm. 2.6 cm partially calcified exophytic lesion upper pole left kidney most consistent with complex cyst versus treated renal lesion. Stomach and bowel: Unremarkable. No obstruction. No mucosal thickening. Appendix: No evidence of appendicitis. Intraperitoneal space: Unremarkable. No free air. No significant fluid collection. Vasculature: Calcification of the abdominal aorta and/or iliac arteries consistent with atherosclerotic vessel disease. Lymph nodes: Unremarkable. No enlarged lymph nodes. Urinary bladder: Gutiérrez balloon catheter in the urinary bladder. Reproductive: Unremarkable as visualized. Bones/joints: Bilateral L5 pars defects. Soft tissues: Unremarkable. CT/CT angio chest w abd pel w con IMPRESSION: 1. Endotracheal tube in place. 2. Enteric tube tip is over the body of the stomach (mid stomach). 3. 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 4. Anterior displacement and effacement of the heart secondary to bulky retrocardiac mass. 5. Occlusion of the left inferior pulmonary veins which are probably surrounded by tumor from direct invasion. 6. Severe left lower lobe pneumonia with mild right lower lobe and left upper lobe pneumonia. 7. No pulmonary embolus. 8. Small left pleural fluid collection and or peripheral atelectasis in the dependent portion of the left lung. IMPRESSION: 1. 2.6 cm partially calcified exophytic lesion upper pole left kidney most consistent with complex cyst versus treated renal lesion. 2. Gutiérrez balloon catheter in the urinary bladder. COMMENTS: Consistent with the [employer]'s Incidental Findings Committee white paper (J Am Laura Radiol 2018): Any incidental renal lesion less than 1 cm or classified as too small to characterize, or any incidental cystic renal lesion characterized as simple-appearing, is likely benign. No follow-up imaging is recommended for these lesions per consensus recommendations based on imaging criteria.
[2024-03-19] MEDS: iohexol 350 mg/mL 500 mL Btl (per mL) IV (00:05)
--- NOTE | 2024-03-19 00:08 | ECG_ITS ---
[facility] Test Date: 2024-03-18 Pat Name: Wes Carrion Department: Room: Gender: Male Residential Case Manager: : [id number] Requested By: Emily Giron Order Number: [id number] Rosa MD: Traci Leary M.D. Measurements Intervals [facility] Rate: 126 P: 78 CA: 137 QRS: -32 QRSD: 78 T: 57 QT: 337 QTc: 490 Interpretive Statements SINUS TACHYCARDIA LEFT AXIS DEVIATION [QRS AXIS < -30] LOW QRS VOLTAGE IN EXTREMITY LEADS [QRS DEFLECTION < 0.5 mV IN LIMB LEADS] Compared to ECG 03/18/2024 22:17:44 Left-axis deviation now present Indeterminate axis no longer present Incomplete right bundle-branch block no longer present Myocardial infarct finding no longer present Electronically Signed On 03-20-2024 19:45:13 VETERINARY PHARMACOLOGIST by Traci Leary M.D. [email or web address]
[2024-03-19 00:13] LABS: Reflex Lactate Order REFLEX LACTIC ORDERD
[2024-03-19] MEDS: sodium chloride 0.9% 1,000 ML 999 ML IV (00:23)
[2024-03-19] MEDS: norepinephrine 4 MG/250 ML BAG 30 MG IV (00:47)
[2024-03-19 00:52] LABS: Lactic Sepsis W/Reflex 2.4 mmol/L (0.5-2.2)
[2024-03-19 01:13] LABS: Troponin 5 2HR 161.1 ng/L (0-15)
[2024-03-19 01:14] LABS: Troponin 5 2HR Delta 95.1 ABS# (0-10)
[2024-03-19 01:57] LABS: ABG PCO2 55.9 mmHg (35-45); Arterial Blood Gas Hematocrit 28.5 % (42-52); Base Excess ABG -7.2 mmol/L (-2.0-2.0); Blood Gas Allen Test Pos; Blood Gas Operator Identificat SAM; Blood Gas Sample Site Radial, right; Blood Gas Sample Type Arterial; Blood Gas Tidal Volume 0.45; Carboxyhemoglobin 1.7 %THgb (0.4-20.1); HGB O2 Sat 95.9 % (95-100); Ionized Calcium Level - ABG 1.2 mmol/L (1.1-1.4); Oxygen Device VENT; Oxygen Saturation ABG 97.7; PO2 FiO2 Ratio Arterial Blood 113; Potassium Level - ABG 4.7 mmol/L (3.5-5.0); Total Hemoglobin 9.3 g/dL (14-18)
[2024-03-19 02:00] LABS: ABG PH Result 7.18 (7.35-7.45)
[2024-03-19 02:17] LABS: Reflex Lactate Order REFLEX LACTIC ORDERD
== END 2024-03-19 02:55 | disposition short-term general hospital (02) ==
PROVIDERS: Emergency Provider Emergency Medicine; PCP Family Medicine
DX: A41.9 Sepsis, unspecified organism (principal); R65.20 Severe sepsis without septic shock; I46.8 Cardiac arrest due to other underlying condition; R19.00 Intra-abdominal and pelvic swelling, mass and lump, unspecified site; J44.9 Chronic obstructive pulmonary disease, unspecified; I21.3 ST elevation (STEMI) myocardial infarction of unspecified site; F17.210 Nicotine dependence, cigarettes, uncomplicated; J84.10 Pulmonary fibrosis, unspecified; D72.829 Elevated white blood cell count, unspecified; E87.20 Acidosis, unspecified; J96.01 Acute respiratory failure with hypoxia; Z11.52 Encounter for screening for COVID-19; Z85.820 Personal history of malignant melanoma of skin
CPT/HCPCS: 0241U; 36600; 51702; 70450; 71045; 71275; 74177; 80051; 80053; 80306; 81001; 82330; 82805; 83605; 83880; 84484; 85025; 87040; 93005; 94002; 94799; 96365; 96366; 96367; 96375; 99291; 99292; J2020; J2185; J2250; J2919; J3010; J7030